=== PATIENT | male | born 1930 | race Caucasian/White ===

== ENCOUNTER 2016-08-14 23:20 | Emergency (ER) | payer OTHER ==
[~2016-08-14 23:20] MED LIST: AMLO10TA2 PO; AMLO2.5T PO; ARTI99.0 OU; ASPI325T PO; ATEN25TA PO; ATOR1TAB21 PO; DORZ2OPD OU; FINA5TAB2 PO; LIDO4CRE2 TOP; LISI-538 PO; METF500T PO; SENN1TAB2 PO; TYLE650T35 PO; XARE20TA PO
[2016-08-15] MEDS ORDERED: GASTROGRAFIN SOLUTION 30ML (Q9963) As Ordered ONE (02:04)
[2016-08-15 02:12] LABS: BASO # 0.1 K/mm3 (0.0-0.2); EOS # 0.6 K/mm3 (0.0-0.50); EOS % 4.8 % (0.0-3.0); LARGE UNSTAINED CELL # 0.1 K/mm3 (0.0-0.4); LARGE UNSTAINED CELL % 1.1 % (0.0-4.0); LYMPH # 1.6 K/mm3 (1.5-4.5); LYMPH % 12.4 % (24.0-44.0); MEAN CORPUSCULAR HEMOGLOBIN 30.4 pg (27.0-33.0); MEAN CORPUSCULAR HGB CONC 33.5 g/dl (32.0-36.5); MEAN CORPUSCULAR VOLUME 90.9 fl (80.0-96.0); MONO # 0.7 K/mm3 (0.0-0.8); MONO % 6.1 % (0.0-5.0); NEUTROPHILS # 8.7 K/mm3 (1.8-7.7); NEUTROPHILS % 74.6 % (36.0-66.0); PLATELET COUNT, AUTOMATED 290 k/mm3 (150-450); RED CELL DISTRIBUTION WIDTH 13.6 % (11.5-14.5); WHITE BLOOD COUNT 11.7 K/mm3 (4.0-10.0)
[2016-08-15 03:09] LABS: CALCIUM LEVEL 9.3 MG/DL (8.8-10.2); CREATININE FOR GFR 1.69 MG/DL (0.70-1.30); GLOMERULAR FILTRATION RATE 41.1 (>35)
[2016-08-15] MEDS ORDERED: NORCO, ANEXSIA 5/325MG TABLET (HYDROcodone/ACETAMINOPHEN) As Ordered ONE (04:32)
--- NOTE | 2016-08-15 04:40 | REPUSA ---
CLINICAL HISTORY: Abdominal pain. TECHNIQUE: Multiple axial, sagittal and coronal CT images were obtained through the abdomen and pelvi s after administration of oral contrast material. COMMENTS: The liver is of uniform attenuation without mass or defect. There is no intra or extrahepatic biliary ductal dilatation. The spleen is normal. The gallbladder contains a 6 mm calcified stone.The pancrea s is of normal contour and attenuation characteristics. There is no evidence of adrenal mass. The kidneys are normal in size, shape and configuration. There is no evidence of renal or ureteral m ass. No renal or ureteral calculi are identified. There is no hydroureter or hydronephrosis. No evidence for appendicitis. There is no bowel wall thickening. No evidence for small or large mark l obstruction. There is no evidence of abdominal ascites or lymphadenopathy. There is no evidence of intrinsic or extrinsic bladder mass. There is no pelvic ascites or lymphadeno omar. Images of the lung bases show no evidence of pleural or parenchymal mass. There are no pleural effusi ons. 5 mm calcified granuloma is noted at the right lung base. S/p left total hip replacement. Left iliopsoas muscle is enlarged and contains a hypodense mass most compatible with an abscess. The bony structures are free of lytic or blastic lesions. Multilevel degenerative changes are seen in volving the thoracolumbar spine. Scattered calcifications are seen involving the aorta and major bran ches compatible with atherosclerosis. IMPRESSION: Gallstone. Left iliopsoas muscle is enlarged and contains a hypodense mass most compatible with an abscess. Cons ider follow up with IV contrast CT or MRI. Thank you for your kind referral of this patient.
[2016-08-15] MEDS ORDERED: ISOVUE-370 76% 100ML VIAL (Q9967) As Ordered ONE (04:58)
--- NOTE | 2016-08-15 05:40 | REPUSA ---
CLINICAL HISTORY: Follow up. TECHNIQUE: Multiple incremental axial images are obtained through the pelvis. Intravenous contrast ma terial was administered for the examination. COMMENTS: S/p left total hip replacement. Hardware is intact. Left iliopsoas muscle is enlarged and contains a peripherally enchansing hypodense mass compatible wi th an abscess. There is no bowel wall thickening. No evidence for small or large bowel obstruction. There is no rainer dence of abdominal ascites or lymphadenopathy. The prostate gland is severely enlarged. Seminal vesicles are grossly unremarkable. There is no evid ence of intrinsic bladder mass. There is no pelvic ascites or lymphadenopathy. No evidence of an ingu inal hernia. The bony structures are free of lytic or blastic lesions. There is no fracture or dislocation. SI mirian nts are unremarkable. IMPRESSION: Left iliopsoas muscle is enlarged and contains a peripherally enchansing hypodense mass compatible wi th an abscess. Consider aspiration. Enlarged prostate. Please correate with PSA levels. Thank you for your kind referral of this patient.
[2016-08-15] MEDS ORDERED: ZOSYN 3.375 GM VIAL (J2543) As Ordered ONE (06:04)
[2016-08-15] MEDS ORDERED: NORCO 5/325MG TABLET (BULK) As Ordered ONE (06:50)
--- NOTE | 2016-08-15 08:59 | EDDOCDS ---
Physician Documentation [facility] Name: Medardo Garcia Age: 85 yrs Sex: Male : 1930 Arrival Date: 08/14/2016 Time: 23:20 Bed 7 Private MD: Antonio Tillman MD Disposition: 08/15/16 06:14 Discharged to Home/Self Care. 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 - Condition is Stable. - Discharge Instructions: Seroma. - Prescriptions for [place] 5- 325 mg Oral Tablet - take 1 tablet by ORAL route every 6 hours As needed MDD: 4 tabs; 20 tablet. - Medication Reconciliation, Local Pharmacy Hours form. - Follow up: Jose Sweet MD; When: Tomorrow; Reason: Recheck today's complaints, To establish care. Follow up: Antonio Tillman MD; When: Call to arrange an appointment; Reason: Continuance of care. - Problem is an ongoing problem. - Symptoms have improved. Historical: - Allergies: No known drug Allergies; - Home Meds: 1. Xarelto 20 mg oral tab 1 tab once daily 2. finasteride 5 mg oral tab 1 tab once daily 3. metformin 500 mg Oral Tb24 1 tab once daily 4. lisinopril 20 mg Oral tab 1 tab once daily 5. atorvastatin 20 mg oral tab 1 tab once daily - PMHx: Hypercholesterolemia; Hypertension; Atrial Fib; Diabetes - NIDDM: controlled; - PSHx: left hip replacement; right knee replacement; cabag x 3; Cataract Surgery- Bilateral; - Social history: Smoking status: Patient states was never smoker of tobacco. No barriers to communication noted, The patient speaks fluent [place], Speaks appropriately for age. - Family history: Not pertinent. - : The pt / caregiver states he / she is on anticoagulants: Xarelto Home medication list is obtained from the patient, family members. - Exposure Risk Screening:: None identified. Vital Signs: 08/14 23:22 BP 176 / 104; Pulse 86; Resp 18 S; Pulse Ox 99% on R/A; Weight 74.84 kg / 164.99 lbs dd6 (R); Height 5 ft. 9 in. (175.26 cm); Pain 7/10; 08/15 05:24 BP 158 / 84; Pulse 95; Resp 18; Temp 96.9(O); Pulse Ox 94% on R/A; nn1 08:57 BP 156 / 84; Pulse 72; Resp 16; Temp 97.3(O); Pulse Ox 97% on R/A; Pain 5/10; mlb1 08/14 23:22 Body Mass Index 24.37 (74.84 kg, 175.26 cm) dd6 MDM: 01:42 Financial registration complete. hs2 01:45 [facility] Payment Agreement was scanned into [employer] and attached to record. hs2 01:49 CBC with Diff Ordered. EDMS 01:49 MED Profile Ordered. EDMS 01:49 CT ABD & PELVIS: Oral Contrast Only Ordered. EDMS 02:03 Diatrizoate Meglumine & Sodium Liquid 10 ml PO once; mix in 290cc of water; 1st cup \T\ nn1 0215; 2nd cup \T\ 0245 ordered. 02:27 CBC with Diff Reviewed. cs11 04:28 MED Profile Reviewed. cs11 04:28 HYDROcodone-acetaminophen 5 mg-325 mg 1 tabs PO once ordered. cs11 04:46 CT ABD & PELVIS: Oral Contrast Only Reviewed. cs11 04:50 NS 0.9% 1000 ml IV at bolus once ordered. cs11 04:52 CT Pelvis With Contrast Ordered. EDMS 05:59 Piperacillin-Tazobactam 3.375 grams IVPB once over 30 mins; dilute in 50mL of NS or D5W cs11 ordered. 06:11 CT Pelvis With Contrast Reviewed. cs11 06:49 HYDROcodone-acetaminophen 4 pack- 5 mg-325 mg 1 packets PO Per package directions; cs11 Dispense with patient. 1 po q4h prn for pain ordered. 08:25 Test interpretation: interpreted by Radiologist and personally reviewed, discussed with pc Radiologist, Abdomen/Pelvis CT; chronic left psoas muscle seroma, unchanged since [address] Cruz. 08:59 T-Sheet-- Draft Copy was scanned into [employer] and attached to record. [facility] Administered Medications: 03:20 Drug: Diatrizoate Meglumine & Sodium 10 ml [diatrizoate meglumine and diat.sodium 66 nn1 %-10 % oral solution (10 mL)] Route: PO; 04:35 Drug: HYDROcodone-acetaminophen 1 tabs [hydrocodone 5 mg-acetaminophen 325 mg tablet (1 nn1 tabs)] Route: PO; 04:58 Drug: NS 0.9% 1000 ml [sodium chloride 0.9 % intravenous solution] Route: IV; Rate: nn1 bolus; Site: left antecubital; 07:56 Follow up: IV Status: Completed infusion mlb1 06:13 Drug: Piperacillin-Tazobactam 3.375 grams [piperacillin-tazobactam 3.375 gram nn1 intravenous solution] Route: IVPB; Infused Over: 30 mins; Site: left antecubital; 06:54 Follow up: IV Status: Completed infusion nn1 06:53 Drug: HYDROcodone-acetaminophen 4 pack- 1 packets [hydrocodone 5 mg-acetaminophen 325 nn1 mg tablet (1 tabs)] {Co-Signature: [email or web address] (Renata Flores RN).} Route: PO; Signatures: Dispatcher [employer] Hammad Valdez MD MD pc Barney, Michael B RN RN mlb1 Sumanth Ann DO DO cs11 Josue ReinosoRN RN Enrique York RN RN nn1 Consuelo Dunbar, Reg Reg hs2 Ivette Bruce RN2 The chart was reviewed and I authenticate all verbal orders and agree with the evaluation and treatment provided.Attachments: 01:45 [facility] Payment Agreement hs2 08:59 T-Sheet-- Draft Copy [facility] MTDD
--- NOTE | 2016-08-17 09:59 | EDDOCDS ---
Physician Documentation [facility] Name: Medardo Garcia Age: 85 yrs Sex: Male : 1930 Arrival Date: 08/14/2016 Time: 23:20 Bed 7 Private MD: Antonio Tillman MD Disposition: 08/15/16 06:14 Discharged to Home/Self Care. 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 - Condition is Stable. - Discharge Instructions: Seroma. - Prescriptions for [place] 5- 325 mg Oral Tablet - take 1 tablet by ORAL route every 6 hours As needed MDD: 4 tabs; 20 tablet. - Medication Reconciliation, Local Pharmacy Hours form. - Follow up: Jose Sweet MD; When: Tomorrow; Reason: Recheck today's complaints, To establish care. Follow up: Antonio Tillman MD; When: Call to arrange an appointment; Reason: Continuance of care. - Problem is an ongoing problem. - Symptoms have improved. Historical: - Allergies: No known drug Allergies; - Home Meds: 1. Xarelto 20 mg oral tab 1 tab once daily 2. finasteride 5 mg oral tab 1 tab once daily 3. metformin 500 mg Oral Tb24 1 tab once daily 4. lisinopril 20 mg Oral tab 1 tab once daily 5. atorvastatin 20 mg oral tab 1 tab once daily - PMHx: Hypercholesterolemia; Hypertension; Atrial Fib; Diabetes - NIDDM: controlled; - PSHx: left hip replacement; right knee replacement; cabag x 3; Cataract Surgery- Bilateral; - Social history: Smoking status: Patient states was never smoker of tobacco. No barriers to communication noted, The patient speaks fluent [place], Speaks appropriately for age. - Family history: Not pertinent. - : The pt / caregiver states he / she is on anticoagulants: Xarelto Home medication list is obtained from the patient, family members. - Exposure Risk Screening:: None identified. Vital Signs: 08/14 23:22 BP 176 / 104; Pulse 86; Resp 18 S; Pulse Ox 99% on R/A; Weight 74.84 kg / 164.99 lbs dd6 (R); Height 5 ft. 9 in. (175.26 cm); Pain 7/10; 08/15 05:24 BP 158 / 84; Pulse 95; Resp 18; Temp 96.9(O); Pulse Ox 94% on R/A; nn1 08:57 BP 156 / 84; Pulse 72; Resp 16; Temp 97.3(O); Pulse Ox 97% on R/A; Pain 5/10; mlb1 08/14 23:22 Body Mass Index 24.37 (74.84 kg, 175.26 cm) dd6 MDM: 01:42 Financial registration complete. hs2 01:45 [facility] Payment Agreement was scanned into [employer] and attached to record. hs2 01:49 CBC with Diff Ordered. EDMS 01:49 MED Profile Ordered. EDMS 01:49 CT ABD & PELVIS: Oral Contrast Only Ordered. EDMS 02:03 Diatrizoate Meglumine & Sodium Liquid 10 ml PO once; mix in 290cc of water; 1st cup \T\ nn1 0215; 2nd cup \T\ 0245 ordered. 02:27 CBC with Diff Reviewed. cs11 04:28 MED Profile Reviewed. cs11 04:28 HYDROcodone-acetaminophen 5 mg-325 mg 1 tabs PO once ordered. cs11 04:46 CT ABD & PELVIS: Oral Contrast Only Reviewed. cs11 04:50 NS 0.9% 1000 ml IV at bolus once ordered. cs11 04:52 CT Pelvis With Contrast Ordered. EDMS 05:59 Piperacillin-Tazobactam 3.375 grams IVPB once over 30 mins; dilute in 50mL of NS or D5W cs11 ordered. 06:11 CT Pelvis With Contrast Reviewed. cs11 06:49 HYDROcodone-acetaminophen 4 pack- 5 mg-325 mg 1 packets PO Per package directions; cs11 Dispense with patient. 1 po q4h prn for pain ordered. 08:25 Test interpretation: interpreted by Radiologist and personally reviewed, discussed with pc Radiologist, Abdomen/Pelvis CT; chronic left psoas muscle seroma, unchanged since [address] Cruz. 08:59 T-Sheet-- Draft Copy was scanned into [employer] and attached to record. [facility] Administered Medications: 03:20 Drug: Diatrizoate Meglumine & Sodium 10 ml [diatrizoate meglumine and diat.sodium 66 nn1 %-10 % oral solution (10 mL)] Route: PO; 04:35 Drug: HYDROcodone-acetaminophen 1 tabs [hydrocodone 5 mg-acetaminophen 325 mg tablet (1 nn1 tabs)] Route: PO; 04:58 Drug: NS 0.9% 1000 ml [sodium chloride 0.9 % intravenous solution] Route: IV; Rate: nn1 bolus; Site: left antecubital; 07:56 Follow up: IV Status: Completed infusion mlb1 06:13 Drug: Piperacillin-Tazobactam 3.375 grams [piperacillin-tazobactam 3.375 gram nn1 intravenous solution] Route: IVPB; Infused Over: 30 mins; Site: left antecubital; 06:54 Follow up: IV Status: Completed infusion nn1 06:53 Drug: HYDROcodone-acetaminophen 4 pack- 1 packets [hydrocodone 5 mg-acetaminophen 325 nn1 mg tablet (1 tabs)] {Co-Signature: [email or web address] (Renata Flores RN).} Route: PO; Signatures: Dispatcher [employer] Hammad Valdez MD MD pc Barney, Michael B RN RN mlb1 Sumanth Ann DO DO cs11 Josue ReinosoRN RN Enrique York RN RN nn1 Consuelo Dunbar, Reg Reg hs2 Ivette Bruce RN2 The chart was reviewed and I authenticate all verbal orders and agree with the evaluation and treatment provided.Attachments: 01:45 [facility] Payment Agreement hs2 08:59 T-Sheet-- Draft Copy [facility] Chart Complete MTDD
--- NOTE | 2016-08-17 09:59 | EDDOCDS ---
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 [facility] Adult Sepsis Screening: The patient does not have new or worsening altered mentation. Patient's respiratory rate is less than 22. Systolic blood pressure is greater than 100. Patient has a qSOFA score of 0- Negative Sepsis Screen. Suicide/Homicide risk assessment- the patient denies having any suicidal and/or homicidal ideations and does not present with any other emotional, behavioral or mental health complaints. Status: Patient is not a guest services attendant or dependent. Transition of care: patient was not received from another setting of care. 23:43 Acuity: LEROY Level 3 [facility] 23:43 Method Of Arrival: Wheelchair [facility] Triage Assessment: 23:45 General: Appears in no apparent distress, comfortable, Behavior is appropriate for age, jmb cooperative. Pain: Location: right femoral area and right inguinal area Pain currently is 3 out of 10 on a pain scale. Neurological: Level of Consciousness is awake, alert, obeys commands, Oriented to person, place, time, Speech is normal, Facial symmetry appears normal, Facial symmetry: tongue is midline. Respiratory: Airway is patent Respiratory effort is even, Respiratory pattern is regular, symmetrical. GI: Abdomen is non- distended. Derm: Skin is pink, warm & dry. Musculoskeletal: Range of motion intact in all extremities. Historical: - Allergies: No known drug Allergies; - Home Meds: 1. Xarelto 20 mg oral tab 1 tab once daily 2. finasteride 5 mg oral tab 1 tab once daily 3. metformin 500 mg Oral Tb24 1 tab once daily 4. lisinopril 20 mg Oral tab 1 tab once daily 5. atorvastatin 20 mg oral tab 1 tab once daily - PMHx: Hypercholesterolemia; Hypertension; Atrial Fib; Diabetes - NIDDM: controlled; - PSHx: left hip replacement; right knee replacement; cabag x 3; Cataract Surgery- Bilateral; - Social history: Smoking status: Patient states was never smoker of tobacco. No barriers to communication noted, The patient speaks fluent Lebanese, Speaks appropriately for age. - Family history: Not pertinent. - : The pt / caregiver states he / she is on anticoagulants: Xarelto Home medication list is obtained from the patient, family members. - Exposure Risk Screening:: None identified. Screenin/15 00:29 Screening information is obtained from the patient, family members. Fall risk: At risk nn1 due to gait disturbance, patient uses walker, family reports patients gait is steady. . Assistance ADL's: requires no assistance with activities of daily living. Abuse/DV Screen: The patient / caregiver reports he/she is: not in a situation that causes fear, pain or injury. Nutritional screening: No deficits noted. Advance Directives: Currently, there is a health care proxy, Tejas Garcia, son . home support is adequate. Assessment: 00:23 General: Appears in no apparent distress, comfortable, Behavior is appropriate for age, nn1 cooperative, Patient reports right upper leg pain since last week, reports pain has caused difficulty with ambulation. Reports yesterday he began having right groin pain. Denies urinary symptoms. Family reports patient uses a walker for ambulation and gait has been unsteady. . Pain: Location: right inguinal area and right femoral area Pain currently is 8 out of 10 on a pain scale. Neurological: Level of Consciousness is awake, alert, obeys commands, Oriented to person, place, time. Respiratory: Airway is patent Respiratory effort is even, unlabored, Respiratory pattern is regular, symmetrical, Breath sounds are clear bilaterally. GI: Abdomen is flat, non- distended Bowel sounds present X 4 quads. Abd is soft and non tender X 4 quads. Derm: Skin is pink, warm & dry. Musculoskeletal: Circulation, motion, and sensation intact Capillary refill < 3 seconds Range of motion intact in all extremities. No deformity noted Swelling absent Patient reports pain is worse when leg is straightened. Denies injury. 01:19 General: Family waiting to be seen by physician. Patient comfortable, no change in nn1 condition at this time. . 02:10 General: Patient drinking contrast at this time. . nn1 03:44 General: Appears to be sleeping. Behavior is quiet, Patient given warm blanket. . nn1 04:24 General: Appears in no apparent distress. General: Patient reports increased pain in nn1 bilateral lower extremities. Provider notified. Family reports patient has 5 bulging discs in his back. offered to reposition patient, patient declined. . Pain: Location: right leg and left leg Pain currently is 8 out of 10 on a pain scale. Neurological: Level of Consciousness is awake, alert. 04:42 General: Patient medicated for pain per orders. . nn1 05:24 General: Patient reports increased pain in bilateral lower extremities after being nn1 transferred in CT. Patient repositioned in bed, pillows placed underneath legs. . 06:13 General: Appears in no apparent distress, comfortable, Behavior is appropriate for age, nn1 cooperative. Pain: Location: right leg and left leg. Neurological: Level of Consciousness is awake, alert, Oriented to person, place, time. Respiratory: Airway is patent Respiratory effort is even, unlabored, Respiratory pattern is regular, symmetrical. Derm: Skin is pink, warm & dry. 06:54 General: Patient and family understand disposition at this time. IV fluids infusing per nn1 order. Patient comfortable. . Neurological: Level of Consciousness is awake, alert, obeys commands, Oriented to person, place, time. Respiratory: Airway is patent Respiratory effort is even, unlabored, Respiratory pattern is regular, symmetrical. Derm: Skin is pink, warm & dry. 07:54 General: Appears in no apparent distress, Behavior is appropriate for age, cooperative. mlb1 Pain: Location: left leg and right leg Pain currently is 7 out of 10 on a pain scale. Neurological: Level of Consciousness is awake, alert, Oriented to person, place, time. Respiratory: Airway is patent Respiratory effort is even, unlabored. 08:58 General: Appears in no apparent distress, comfortable, Behavior is appropriate for age, mlb1 cooperative. Pain: Location: left leg and right leg and right inguinal area Pain currently is 5 out of 10 on a pain scale. Neurological: No deficits noted. Respiratory: No deficits noted. Musculoskeletal: Range of motion intact in all extremities. Vital Signs: 08/14 23:22 BP 176 / 104; Pulse 86; Resp 18 S; Pulse Ox 99% on R/A; Weight 74.84 kg (R); Height 5 dd6 ft. 9 in. (175.26 cm); Pain 7/10; 08/15 05:24 BP 158 / 84; Pulse 95; Resp 18; Temp 96.9(O); Pulse Ox 94% on R/A; nn1 08:57 BP 156 / 84; Pulse 72; Resp 16; Temp 97.3(O); Pulse Ox 97% on R/A; Pain 5/10; mlb1 08/14 23:22 Body Mass Index 24.37 (74.84 kg, 175.26 cm) dd6 Vitals: 08/14 23:22 Log In Time: August 14, 2016 at 23:20. dd6 ED Course: 23:21 Patient visited by Karan Britton PCA. dd6 23:21 Patient moved to Waiting dd6 23:22 Antonio Tillman is Private Physician. dd6 23:23 Patient moved to Pre RCE dd6 23:42 Patient moved to Triage 2 jmb 23:43 Triage Initiated jmb 08/15 00:01 Patient moved to 7 jmb 00:23 Patient visited by Enrique Ruiz RN. nn1 01:20 Patient visited by Enrique Ruiz RN. nn1 01:37 Sumanth Ann DO is Attending Physician. cs11 01:37 Patient visited by Sumanth Ann DO. cs11 01:45 [facility] Payment Agreement was scanned into [employer] and attached to record. hs2 01:59 MED Profile Sent. nn1 01:59 CBC with Diff Sent. nn1 01:59 Inserted saline lock: 20 gauge in left antecubital area and blood collected. The nn1 patient tolerated the procedure well. 02:10 Enrique Ruiz RN is Primary Nurse. nn1 02:10 Patient visited by Enrique Ruiz RN. nn1 02:44 Patient visited by Enrique Ruiz RN. nn1 03:20 Patient visited by Enrique Ruiz RN. nn1 04:18 Patient visited by Enrique Ruiz RN. nn1 04:45 CT ABD & PELVIS: Oral Contrast Only Returned. EDMS 05:24 Patient visited by Enrique Ruiz RN. nn1 05:49 CT Pelvis With Contrast Returned. EDMS 06:13 Patient visited by Enrique Ruiz RN. nn1 06:13 Jose Sweet MD is Referral Physician. cs11 07:11 The patient / caregiver is instructed regarding the plan of care and ED course. mlb1 07:27 No procedures done that require assistance. mlb1 07:55 Patient visited by Moshe Saleem, JACQUELINE. mlb1 08:29 Antonio Tillman MD is Referral Physician. pc 08:58 Patient visited by Moshe Saleem RN. mlb1 08:59 T-Sheet-- Draft Copy was scanned into [employer] and attached to record. seh Administered Medications: 03:20 Drug: Diatrizoate Meglumine & Sodium 10 ml [diatrizoate meglumine and diat.sodium 66 nn1 %-10 % oral solution (10 mL)] Route: PO; 04:35 Drug: HYDROcodone-acetaminophen 1 tabs [hydrocodone 5 mg-acetaminophen 325 mg tablet (1 nn1 tabs)] Route: PO; 04:58 Drug: NS 0.9% 1000 ml [sodium chloride 0.9 % intravenous solution] Route: IV; Rate: nn1 bolus; Site: left antecubital; 07:56 Follow up: IV Status: Completed infusion mlb1 06:13 Drug: Piperacillin-Tazobactam 3.375 grams [piperacillin-tazobactam 3.375 gram nn1 intravenous solution] Route: IVPB; Infused Over: 30 mins; Site: left antecubital; 06:54 Follow up: IV Status: Completed infusion nn1 06:53 Drug: HYDROcodone-acetaminophen 4 pack- 1 packets [hydrocodone 5 mg-acetaminophen 325 nn1 mg tablet (1 tabs)] {Co-Signature: kas2 (Renata Flores RN).} Route: PO; Order Results: Lab Order: CBC with Diff; SPEC'M 08/15/16 01:58 Test: WHITE BLOOD COUNT; Value: 11.7; Range: 4.0-10.0; Abnormal: Above high normal; Units: K/mm3; Status: F Test: RED BLOOD COUNT; Value: 4.50; Range: 4.30-6.10; Units: M/mm3; Status: F Test: HEMOGLOBIN; Value: 13.7; Range: 14.0-18.0; Abnormal: Below low normal; Units: g/dl; Status: F Test: HEMATOCRIT; Value: 40.9; Range: 42.0-52.0; Abnormal: Below low normal; Units: %; Status: F Test: MEAN CORPUSCULAR VOLUME; Value: 90.9; Range: 80.0-96.0; Units: fl; Status: F Test: MEAN CORPUSCULAR HEMOGLOBIN; Value: 30.4; Range: 27.0-33.0; Units: pg; Status: F Test: MEAN CORPUSCULAR HGB CONC; Value: 33.5; Range: 32.0-36.5; Units: g/dl; Status: F Test: RED CELL DISTRIBUTION WIDTH; Value: 13.6; Range: 11.5-14.5; Units: %; Status: F Test: PLATELET COUNT, AUTOMATED; Value: 290; Range: 150-450; Units: k/mm3; Status: F Test: NEUTROPHILS %; Value: 74.6; Range: 36.0-66.0; Abnormal: Above high normal; Units: %; Status: F Test: LYMPH %; Value: 12.4; Range: 24.0-44.0; Abnormal: Below low normal; Units: %; Status: F Test: MONO %; Value: 6.1; Range: 0.0-5.0; Abnormal: Above high normal; Units: %; Status: F Test: EOS %; Value: 4.8; Range: 0.0-3.0; Abnormal: Above high normal; Units: %; Status: F Test: BASO %; Value: 1.0; Range: 0.0-1.0; Units: %; Status: F Test: LARGE UNSTAINED CELL %; Value: 1.1; Range: 0.0-4.0; Units: %; Status: F Test: NEUTROPHILS #; Value: 8.7; Range: 1.8-7.7; Abnormal: Above high normal; Units: K/mm3; Status: F Test: LYMPH #; Value: 1.6; Range: 1.5-4.5; Units: K/mm3; Status: F Test: MONO #; Value: 0.7; Range: 0.0-0.8; Units: K/mm3; Status: F Test: EOS #; Value: 0.6; Range: 0.0-0.50; Abnormal: Above high normal; Units: K/mm3; Status: F Test: BASO #; Value: 0.1; Range: 0.0-0.2; Units: K/mm3; Status: F Test: LARGE UNSTAINED CELL #; Value: 0.1; Range: 0.0-0.4; Units: K/mm3; Status: F Lab Order: MED Profile; BECKY 08/15/16 02:37 Test: GLUCOSE, FASTING; Value: 118; Range: 83-110; Abnormal: Above high normal; Units: MG/DL; Status: F Test: BLOOD UREA NITROGEN; Value: 36; Range: 7-18; Abnormal: Above high normal; Units: MG/DL; Status: F Test: CREATININE FOR GFR; Value: 1.69; Range: 0.70-1.30; Abnormal: Above high normal; Units: MG/DL; Status: F Test: GLOMERULAR FILTRATION RATE; Value: 41.1; Range: >35; Status: F Test: SODIUM LEVEL; Value: 141; Range: 136-145; Units: MEQ/L; Status: F Test: POTASSIUM SERUM; Value: 4.0; Range: 3.5-5.1; Units: MEQ/L; Status: F Test: CHLORIDE LEVEL; Value: 108; Range: 98-107; Abnormal: Above high normal; Units: MEQ/L; Status: F Test: CARBON DIOXIDE LEVEL; Value: 24; Range: 21-32; Units: MEQ/L; Status: F Test: ANION GAP; Value: 9; Range: 8-16; Units: MEQ/L; Status: F Test: CALCIUM LEVEL; Value: 9.3; Range: 8.8-10.2; Units: MG/DL; Status: F Test Note: ; Units are mL/min/1.73 m2 Chronic Kidney Disease Staging per NKF: Stage I & II GFR >=60 Normal to Mildly Decreased Stage III GFR 30-59 Moderately Decreased Stage IV GFR 15-29 Severely Decreased Stage V GFR <15 Very Little GFR Left ESRD GFR <15 on ROUTE SERVICE REPRESENTATIVE Radiology Order: CT ABD & PELVIS: Oral Contrast Only Test: CT ABD & PELVIS: Oral Contrast Only REASON FOR EXAMINATION: Appendicitis; ; CLINICAL HISTORY: Abdominal pain.; TECHNIQUE: Multiple axial, sagittal and coronal CT images were obtained through the abdomen and pelvi; s after administration of oral contrast material.; COMMENTS:; The liver is of uniform attenuation without mass or defect. There is no intra or extrahepatic biliary; ductal dilatation. The spleen is normal. The gallbladder contains a 6 mm calcified stone.The pancrea; s is of normal contour and attenuation characteristics. There is no evidence of adrenal mass.; The kidneys are normal in size, shape and configuration. There is no evidence of renal or ureteral m; ass. No renal or ureteral calculi are identified. There is no hydroureter or hydronephrosis.; No evidence for appendicitis. There is no bowel wall thickening. No evidence for small or large mark; l obstruction. There is no evidence of abdominal ascites or lymphadenopathy.; There is no evidence of intrinsic or extrinsic bladder mass. There is no pelvic ascites or lymphadeno; omar.; Images of the lung bases show no evidence of pleural or parenchymal mass. There are no pleural effusi; ons. 5 mm calcified granuloma is noted at the right lung base.; S/p left total hip replacement. Left iliopsoas muscle is enlarged and contains a hypodense mass most; compatible with an abscess.; The bony structures are free of lytic or blastic lesions. Multilevel degenerative changes are seen in; volving the thoracolumbar spine. Scattered calcifications are seen involving the aorta and major bran; ches compatible with atherosclerosis.; IMPRESSION:; Gallstone.; Left iliopsoas muscle is enlarged and contains a hypodense mass most compatible with an abscess. Cons; ider follow up with IV contrast CT or MRI.; Thank you for your kind referral of this patient.; ; Radiology Order: CT Pelvis With Contrast Test: CT Pelvis With Contrast REASON FOR EXAMINATION: eval iliopsoas abscess; ; CLINICAL HISTORY: Follow up.; TECHNIQUE: Multiple incremental axial images are obtained through the pelvis. Intravenous contrast ma; terial was administered for the examination.; COMMENTS:; S/p left total hip replacement. Hardware is intact.; Left iliopsoas muscle is enlarged and contains a peripherally enchansing hypodense mass compatible wi; th an abscess.; There is no bowel wall thickening. No evidence for small or large bowel obstruction. There is no rainer; dence of abdominal ascites or lymphadenopathy.; The prostate gland is severely enlarged. Seminal vesicles are grossly unremarkable. There is no evid; ence of intrinsic bladder mass. There is no pelvic ascites or lymphadenopathy. No evidence of an ingu; inal hernia.; The bony structures are free of lytic or blastic lesions. There is no fracture or dislocation. SI mirian; nts are unremarkable.; IMPRESSION:; Left iliopsoas muscle is enlarged and contains a peripherally enchansing hypodense mass compatible wi; th an abscess. Consider aspiration.; Enlarged prostate. Please correate with PSA levels.; Thank you for your kind referral of this patient.; ; ; Outcome: 06:14 Discharge ordered by Provider. cs11 06:55 Discharge Assessment: Patient awake, alert and oriented x 3. No cognitive and/or nn1 functional deficits noted. Patient verbalized understanding of disposition instructions. patient administered narcotics - yes. Pt provided with safe discharge. CT Study completed. 08:58 The following High Risk Discharge criteria are identified: None. Discharged to home mlb1 ambulatory, with family. Condition: good. Discharge instructions given to patient, family, Instructed on discharge instructions, follow up and referral plans. medication usage, no driving heavy equipment, Demonstrated understanding of instructions, medications, Pt was receptive of discharge instructions/ teaching. Prescriptions given X 1. Property sent home with patient. 08:58 Patient left the ED. mlb1 Signatures: Dispatcher [employer] EDMS Hammad Saab MD MD pc Barney, Michael B RN RN mlb1 Karan Britton, CLINICAL DATA MANAGEMENT MANAGER CLINICAL DATA MANAGEMENT MANAGER dd6 Sumanth Ann, DO cs11 Josue ReinosoRN RN Enrique York RN RN nn1 Consuelo Dunbar, Reg Reg hs2 Ivette Bruce RN kas2 Chart Complete MTDD
--- NOTE | 2016-08-17 09:59 | EDDOCDS ---
Physician Documentation [facility] Name: Medardo Garcia Age: 85 yrs Sex: Male : 1930 Arrival Date: 08/14/2016 Time: 23:20 Bed 7 Private MD: Antonio Tillman MD Disposition: 08/15/16 06:14 Discharged to Home/Self Care. 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 - Condition is Stable. - Discharge Instructions: Seroma. - Prescriptions for [place] 5- 325 mg Oral Tablet - take 1 tablet by ORAL route every 6 hours As needed MDD: 4 tabs; 20 tablet. - Medication Reconciliation, Local Pharmacy Hours form. - Follow up: Jose Sweet MD; When: Tomorrow; Reason: Recheck today's complaints, To establish care. Follow up: Antonio Tillman MD; When: Call to arrange an appointment; Reason: Continuance of care. - Problem is an ongoing problem. - Symptoms have improved. Historical: - Allergies: No known drug Allergies; - Home Meds: 1. Xarelto 20 mg oral tab 1 tab once daily 2. finasteride 5 mg oral tab 1 tab once daily 3. metformin 500 mg Oral Tb24 1 tab once daily 4. lisinopril 20 mg Oral tab 1 tab once daily 5. atorvastatin 20 mg oral tab 1 tab once daily - PMHx: Hypercholesterolemia; Hypertension; Atrial Fib; Diabetes - NIDDM: controlled; - PSHx: left hip replacement; right knee replacement; cabag x 3; Cataract Surgery- Bilateral; - Social history: Smoking status: Patient states was never smoker of tobacco. No barriers to communication noted, The patient speaks fluent Namibian, Speaks appropriately for age. - Family history: Not pertinent. - : The pt / caregiver states he / she is on anticoagulants: Xarelto Home medication list is obtained from the patient, family members. - Exposure Risk Screening:: None identified. Vital Signs: 08/14 23:22 BP 176 / 104; Pulse 86; Resp 18 S; Pulse Ox 99% on R/A; Weight 74.84 kg / 164.99 lbs dd6 (R); Height 5 ft. 9 in. (175.26 cm); Pain 7/10; 08/15 05:24 BP 158 / 84; Pulse 95; Resp 18; Temp 96.9(O); Pulse Ox 94% on R/A; nn1 08:57 BP 156 / 84; Pulse 72; Resp 16; Temp 97.3(O); Pulse Ox 97% on R/A; Pain 5/10; mlb1 08/14 23:22 Body Mass Index 24.37 (74.84 kg, 175.26 cm) dd6 MDM: 01:42 Financial registration complete. hs2 01:45 [facility] Payment Agreement was scanned into [employer] and attached to record. hs2 01:49 CBC with Diff Ordered. EDMS 01:49 MED Profile Ordered. EDMS 01:49 CT ABD & PELVIS: Oral Contrast Only Ordered. EDMS 02:03 Diatrizoate Meglumine & Sodium Liquid 10 ml PO once; mix in 290cc of water; 1st cup \T\ nn1 0215; 2nd cup \T\ 0245 ordered. 02:27 CBC with Diff Reviewed. cs11 04:28 MED Profile Reviewed. cs11 04:28 HYDROcodone-acetaminophen 5 mg-325 mg 1 tabs PO once ordered. cs11 04:46 CT ABD & PELVIS: Oral Contrast Only Reviewed. cs11 04:50 NS 0.9% 1000 ml IV at bolus once ordered. cs11 04:52 CT Pelvis With Contrast Ordered. EDMS 05:59 Piperacillin-Tazobactam 3.375 grams IVPB once over 30 mins; dilute in 50mL of NS or D5W cs11 ordered. 06:11 CT Pelvis With Contrast Reviewed. cs11 06:49 HYDROcodone-acetaminophen 4 pack- 5 mg-325 mg 1 packets PO Per package directions; cs11 Dispense with patient. 1 po q4h prn for pain ordered. 08:25 Test interpretation: interpreted by Radiologist and personally reviewed, discussed with pc Radiologist, Abdomen/Pelvis CT; chronic left psoas muscle seroma, unchanged since [address] Cruz. 08:59 T-Sheet-- Draft Copy was scanned into [employer] and attached to record. [facility] Administered Medications: 03:20 Drug: Diatrizoate Meglumine & Sodium 10 ml [diatrizoate meglumine and diat.sodium 66 nn1 %-10 % oral solution (10 mL)] Route: PO; 04:35 Drug: HYDROcodone-acetaminophen 1 tabs [hydrocodone 5 mg-acetaminophen 325 mg tablet (1 nn1 tabs)] Route: PO; 04:58 Drug: NS 0.9% 1000 ml [sodium chloride 0.9 % intravenous solution] Route: IV; Rate: nn1 bolus; Site: left antecubital; 07:56 Follow up: IV Status: Completed infusion mlb1 06:13 Drug: Piperacillin-Tazobactam 3.375 grams [piperacillin-tazobactam 3.375 gram nn1 intravenous solution] Route: IVPB; Infused Over: 30 mins; Site: left antecubital; 06:54 Follow up: IV Status: Completed infusion nn1 06:53 Drug: HYDROcodone-acetaminophen 4 pack- 1 packets [hydrocodone 5 mg-acetaminophen 325 nn1 mg tablet (1 tabs)] {Co-Signature: kas2 (Renata Flores RN).} Route: PO; Signatures: Dispatcher [employer] Hammad Valdez MD MD pc Barney, Michael B RN RN mlb1 Sumanth Ann DO DO cs11 Josue ReinosoRN RN Enrique York RN RN nn1 Cosnuelo Dunbar, Reg Reg hs2 Ivette Bruce RN2 The chart was reviewed and I authenticate all verbal orders and agree with the evaluation and treatment provided.Attachments: 01:45 [facility] Payment Agreement hs2 08:59 T-Sheet-- Draft Copy [facility] Chart Complete MTDD
== END 2016-08-15 08:58 | disposition home or self-care (01) ==
LOC: M ED 23:20
DX: K68.12 Psoas muscle abscess (principal); M16.11 Unilateral primary osteoarthritis, right hip; E11.9 Type 2 diabetes mellitus without complications; I10 Essential (primary) hypertension; I48.91 Unspecified atrial fibrillation; E78.5 Hyperlipidemia, unspecified; E78.00 Pure hypercholesterolemia, unspecified; Z79.899 Other long term (current) drug therapy; Z79.01 Long term (current) use of anticoagulants; Z79.84 Long term (current) use of oral hypoglycemic drugs
CPT/HCPCS: 36415; 74176; 80048; 85025; 96361; 96365; 99284; J2543; Q9963; Q9967

== ENCOUNTER → 2016-09-03 | Outpatient (CLI) | payer OTHER ==
[~2016-09-03] MED LIST changes: +CONRAY-43 43% 50ML VIAL (Q9960) As Ordered ONE; +LIDOCAINE 1% MDV 20ML VIAL As Ordered ONE; +TRIAMCINOLONE ACETONIDE SUSP 40 MG/ML VIAL (J3301) As Ordered ONE
--- NOTE | 2016-09-03 19:34 | REP ---
Right hip injection The procedure was performed under the direct supervision of Dr. Uriostegui. The benefits and risks including but not limited to pain infection and bleeding and anaphylaxis were explained to the patient and informed consent was obtained. The Right femoral neck was localized using fluoroscopic guidance. The skin was prepped and draped in a sterile fashion. 1% lidocaine was used as a local anesthetic. Using fluoroscopic guidance a 22-gauge spinal needle was inserted and advanced to the femoral neck. 0.5 ml of [place] 43 was injected to verify placement. 6 ml of a solution containing 5 ml of 1% Xylocaine and 1 ml of Kenalog 40 mg was injected. The needle was then removed. The patient tolerated the procedure well and there were no immediate complications. 5 seconds of fluoro time was utilized for this procedure. Reviewed by CLARISSA Golden 09/03/2016 01:41 PSigned by Shamar Uriostegui MD 09/03/2016 07:22 P
== END ==
LOC: M RADPRO 09:59
PROVIDERS: ATTEND Orthopaedic Surgery
DX: M16.11 Unilateral primary osteoarthritis, right hip (principal)
CPT/HCPCS: 20611; 77002; J3301; Q9960

== ENCOUNTER → 2017-01-28 | Outpatient (REF) | payer MEDICARE, MEDICAID ==
[~2017-01-28] MED LIST changes: -CONRAY-43 43% 50ML VIAL (Q9960) As Ordered ONE; -LIDOCAINE 1% MDV 20ML VIAL As Ordered ONE; -METF500T PO; +METF500T13 PO; -TRIAMCINOLONE ACETONIDE SUSP 40 MG/ML VIAL (J3301) As Ordered ONE
[2017-01-28 07:24] LABS: MEAN CORPUSCULAR HEMOGLOBIN 30.5 pg (27.0-33.0); MEAN CORPUSCULAR HGB CONC 32.4 g/dl (32.0-36.5); MEAN CORPUSCULAR VOLUME 94.2 fl (80.0-96.0); PLATELET COUNT, AUTOMATED 320 k/mm3 (150-450); RED CELL DISTRIBUTION WIDTH 13.3 % (11.5-14.5); WHITE BLOOD COUNT 22.4 K/mm3 (4.0-10.0)
[2017-01-28 07:53] LABS: CALCIUM LEVEL 9.4 MG/DL (8.8-10.2); CREATININE FOR GFR 1.53 MG/DL (0.70-1.30); POTASSIUM SERUM 4.1 MEQ/L (3.5-5.1)
[2017-01-28 10:17] LABS: BASO % 0.2 % (0.0-1.0); EOS % 0.1 % (0.0-3.0); LARGE UNSTAINED CELL # 0.1 K/mm3 (0.0-0.4); LARGE UNSTAINED CELL % 0.6 % (0.0-4.0); LYMPH # 1.8 K/mm3 (1.5-4.5); LYMPH % 7.5 % (24.0-44.0); MONO # 1.6 K/mm3 (0.0-0.8); NEUTROPHILS # 18.7 K/mm3 (1.8-7.7); NEUTROPHILS % 84.6 % (36.0-66.0)
[2017-01-28 12:48] LABS: DIFF SLIDE NUMBER 55
== END ==
LOC: SKLAB4 11:40
PROVIDERS: ATTEND Internal Medicine
DX: I48.91 Unspecified atrial fibrillation (principal); E11.9 Type 2 diabetes mellitus without complications

== ENCOUNTER → 2017-02-01 | Outpatient (REF) | payer MEDICARE, MEDICAID | LOC: SKLAB4 08:04 | PROVIDERS: ATTEND Internal Medicine | DX: R35.0 Frequency of micturition (principal) ==

== ENCOUNTER → 2017-02-03 | Outpatient (REF) | payer MEDICARE, MEDICAID ==
[2017-02-03 09:04] LABS: BASO # 0.1 K/mm3 (0.0-0.2); BASO % 0.5 % (0.0-1.0); EOS # 0.5 K/mm3 (0.0-0.50); EOS % 4.3 % (0.0-3.0); LARGE UNSTAINED CELL # 0.1 K/mm3 (0.0-0.4); LARGE UNSTAINED CELL % 1.1 % (0.0-4.0); LYMPH # 1.4 K/mm3 (1.5-4.5); LYMPH % 11.6 % (24.0-44.0); MEAN CORPUSCULAR HEMOGLOBIN 31.1 pg (27.0-33.0); MEAN CORPUSCULAR HGB CONC 32.6 g/dl (32.0-36.5); MEAN CORPUSCULAR VOLUME 95.4 fl (80.0-96.0); MONO # 0.7 K/mm3 (0.0-0.8); NEUTROPHILS # 9.2 K/mm3 (1.8-7.7); NEUTROPHILS % 76.5 % (36.0-66.0); PLATELET COUNT, AUTOMATED 332 k/mm3 (150-450); RED CELL DISTRIBUTION WIDTH 13.2 % (11.5-14.5); WHITE BLOOD COUNT 12.1 K/mm3 (4.0-10.0)
[2017-02-03 09:44] LABS: CREATININE FOR GFR 1.63 MG/DL (0.70-1.30); GLOMERULAR FILTRATION RATE 42.7 (>35); POTASSIUM SERUM 4.5 MEQ/L (3.5-5.1)
== END ==
LOC: SKLAB4 09:50
PROVIDERS: ATTEND Internal Medicine
DX: D64.9 Anemia, unspecified (principal)

== ENCOUNTER → 2017-04-18 | Outpatient (REF) | payer MEDICARE, MEDICAID ==
[2017-04-18 10:16] LABS: MEAN CORPUSCULAR HEMOGLOBIN 30.7 pg (27.0-33.0); MEAN CORPUSCULAR HGB CONC 32.5 g/dl (32.0-36.5); MEAN CORPUSCULAR VOLUME 94.4 fl (80.0-96.0); RED CELL DISTRIBUTION WIDTH 13.2 % (11.5-14.5); WHITE BLOOD COUNT 8.8 K/mm3 (4.0-10.0)
[2017-04-18 10:29] LABS: CALCIUM LEVEL 8.8 MG/DL (8.8-10.2); CREATININE FOR GFR 1.68 MG/DL (0.70-1.30); GLOMERULAR FILTRATION RATE 41.3 (>35); POTASSIUM SERUM 4.7 MEQ/L (3.5-5.1)
== END ==
LOC: SKLAB4 10:03
PROVIDERS: ATTEND Internal Medicine
DX: N18.9 Chronic kidney disease, unspecified (principal)

== ENCOUNTER → 2017-05-16 | Outpatient (REF) | payer MEDICARE, MEDICAID ==
[2017-05-16 08:41] LABS: MEAN CORPUSCULAR HEMOGLOBIN 30.5 pg (27.0-33.0); MEAN CORPUSCULAR HGB CONC 32.5 g/dl (32.0-36.5); MEAN CORPUSCULAR VOLUME 93.9 fl (80.0-96.0); RED CELL DISTRIBUTION WIDTH 13.2 % (11.5-14.5); WHITE BLOOD COUNT 11.4 10^3/uL (4.0-10.0)
[2017-05-16 09:02] LABS: CALCIUM LEVEL 8.7 MG/DL (8.8-10.2); CREATININE FOR GFR 1.63 MG/DL (0.70-1.30); GLOMERULAR FILTRATION RATE 42.7 (>35); POTASSIUM SERUM 4.3 MEQ/L (3.5-5.1)
== END ==
LOC: SKLAB4 09:51
PROVIDERS: ATTEND Internal Medicine
DX: E11.9 Type 2 diabetes mellitus without complications (principal); N28.9 Disorder of kidney and ureter, unspecified

== ENCOUNTER → 2017-08-15 | Outpatient (REF) | payer MEDICARE, MEDICAID ==
[2017-08-15 10:14] LABS: HEMATOCRIT 36.6 % (42.0-52.0); HEMOGLOBIN 11.7 g/dl (14.0-18.0); MEAN CORPUSCULAR HEMOGLOBIN 29.4 pg (27.0-33.0); PLATELET COUNT, AUTOMATED 406 10^3/uL (150-450); RED BLOOD COUNT 3.98 10^6/uL (4.30-6.10); RED CELL DISTRIBUTION WIDTH 13.5 % (11.5-14.5); WHITE BLOOD COUNT 11.4 10^3/uL (4.0-10.0)
[2017-08-15 10:45] LABS: ANION GAP 11 MEQ/L (8-16); BLOOD UREA NITROGEN 45 MG/DL (7-18); CALCIUM LEVEL 9.3 MG/DL (8.8-10.2); CARBON DIOXIDE LEVEL 23 MEQ/L (21-32); CHLORIDE LEVEL 106 MEQ/L (98-107); CREATININE FOR GFR 1.93 MG/DL (0.70-1.30); GLOMERULAR FILTRATION RATE 35.2 (>35); GLUCOSE, FASTING 163 MG/DL (83-110); POTASSIUM SERUM 4.9 MEQ/L (3.5-5.1); SODIUM LEVEL 140 MEQ/L (136-145)
== END ==
LOC: SKLAB4 12:22
DX: I15.9 Secondary hypertension, unspecified (principal); N18.9 Chronic kidney disease, unspecified
CPT/HCPCS: 36415

== ENCOUNTER → 2017-08-22 | Outpatient (REF) | payer MEDICARE, MEDICAID ==
[2017-08-22 20:24] LABS: AMORPHOUS SEDIMENT SMALL (NEGATIVE); APPEARANCE, URINE HAZY (CLEAR); BACTERIA, URINE AUTO 1+ (NEGATIVE); BILIRUBIN, URINE AUTO NEGATIVE (NEGATIVE); BLOOD, URINE BLOOD NEGATIVE (NEGATIVE); COLOR, URINE YELLOW (YELLOW); GLUCOSE, URINE (UA) AUTO NEGATIVE (NEGATIVE); KETONE, URINE AUTO NEGATIVE (NEGATIVE); LEUKOCYTE ESTERASE, URINE AUTO 2+ (NEGATIVE); NITRITE, URINE AUTO NEGATIVE (NEGATIVE); PROTEIN, URINE AUTO NEGATIVE (NEGATIVE); RBC, URINE AUTO 3 /HPF (0-3); SPECIFIC GRAVITY URINE AUTO 1.016 (1.002-1.035); SQUAMOUS EPITHELIAL CELL UR AU 0 /HPF (0-6); UROBILINOGEN, URINE AUTO 0.2 mg/dL (0.0-2.0); WBC, URINE AUTO 20 /HPF (0-3)
== END ==
LOC: SKLAB4 15:00
DX: R39.89 Other symptoms and signs involving the genitourinary system (principal)
CPT/HCPCS: 81001

== ENCOUNTER → 2017-08-23 | Outpatient (REF) | payer MEDICARE, MEDICAID ==
[2017-08-23 08:15] LABS: ANION GAP 8 MEQ/L (8-16); BLOOD UREA NITROGEN 44 MG/DL (7-18); CALCIUM LEVEL 9.3 MG/DL (8.8-10.2); CARBON DIOXIDE LEVEL 23 MEQ/L (21-32); CHLORIDE LEVEL 107 MEQ/L (98-107); CREATININE FOR GFR 1.81 MG/DL (0.70-1.30); GLOMERULAR FILTRATION RATE 37.9 (>35); GLUCOSE, FASTING 130 MG/DL (70-100); POTASSIUM SERUM 4.6 MEQ/L (3.5-5.1); SODIUM LEVEL 138 MEQ/L (136-145)
== END ==
LOC: SKLAB4 07:00
DX: Z00.00 Encounter for general adult medical examination without abnormal findings (principal)
CPT/HCPCS: 36415

== ENCOUNTER → 2017-08-29 | Outpatient (REF) | payer MEDICARE, MEDICAID ==
[2017-08-29 10:32] LABS: ANION GAP 12 MEQ/L (8-16); BLOOD UREA NITROGEN 35 MG/DL (7-18); CALCIUM LEVEL 9.2 MG/DL (8.8-10.2); CARBON DIOXIDE LEVEL 23 MEQ/L (21-32); CHLORIDE LEVEL 104 MEQ/L (98-107); CREATININE FOR GFR 1.72 MG/DL (0.70-1.30); GLOMERULAR FILTRATION RATE 40.1 (>35); GLUCOSE, FASTING 177 MG/DL (70-100); POTASSIUM SERUM 4.2 MEQ/L (3.5-5.1); SODIUM LEVEL 139 MEQ/L (136-145)
== END ==
LOC: SKLAB4 09:38
DX: N28.9 Disorder of kidney and ureter, unspecified (principal)
CPT/HCPCS: 36415